=== PATIENT | female | born 1965 | race Asian ===

== ENCOUNTER 2023-07-19 08:07 | Outpatient (CLI) | payer BC ==
[2023-07-19 09:04] LABS: BASOPHILS # (AUTO) 0.1 K/uL (0.0-0.2); BASOPHILS % (AUTO) 1.2 % (0.0-2.0); EOSINOPHILS # (AUTO) 0.2 K/uL (0.0-0.7); EOSINOPHILS % (AUTO) 2.9 % (0.0-6.0); HEMATOCRIT 39 % (33-45); HEMOGLOBIN 12.7 g/dL (11.5-14.8); LYMPHOCYTES # (AUTO) 3.4 K/uL (0.8-4.8); LYMPHOCYTES % (AUTO) 48.3 % (20.0-44.0); MEAN CORPUSCULAR HEMOGLOBIN 32 PG (26.0-33.0); MEAN CORPUSCULAR HGB CONC 33 g/dl (31.0-36.0); MEAN CORPUSCULAR VOLUME 96 fL (82-100); MONOCYTES # (AUTO) 0.3 K/uL (0.1-1.30); NEUTROPHILS # (AUTO) 3.1 K/uL (1.8-8.9); NEUTROPHILS % (AUTO) 43.6 % (43.0-81.0); PLATELET COUNT (AUTO) 312 K/uL (150-450); RED BLOOD CELL COUNT(AUTO) 4.01 MIL/uL (4.0-5.2); RED CELL DISTRIBUTION WIDTH 12.3 % (11.5-15.0)
[2023-07-19 09:08] LABS: APPEARANCE,URINE CLEAR (CLEAR); BILIRUBIN,URINE NEGATIVE (NEGATIVE); BLOOD, URINE 1+ Ery/uL (NEGATIVE); COLOR,URINE YELLOW (YELLOW); KETONES,URINE NEGATIVE (NEGATIVE); LEUKOCYTE ESTERASE ,URINE NEGATIVE (NEGATIVE); NITRITE, URINE NEGATIVE (NEGATIVE); PH,URINE 5.5 (5.0-8.0); PROTEIN,URINE NEGATIVE (NEGATIVE); UGLUCOSE NEGATIVE (NEGATIVE); UROBILINOGEN,URINE 0.2 EU/dL (0.2)
[2023-07-19 09:14] LABS: ADD URINE CULTURE NO; BACTERIA,URINE Rare /HPF (None Seen); SQUAMOUS EPITHELIAL CELL,UR None Seen /HPF (None Seen); WBC,URINE 0-2 /HPF (0-3)
[2023-07-19 09:15] LABS: ERYTHROCYTE SEDIMENTATION RATE 20 MM/HR (0-30)
[2023-07-19 09:18] LABS: ALBUMIN 3.9 g/dL (3.4-5.0); BILIRUBIN,TOTAL 0.3 mg/dL (0.2-1.0); CALCIUM, SERUM 9.4 mg/dL (8.5-10.1); CREATININE 0.8 mg/dL (0.6-1.3); POTASSIUM 3.6 mmol/L (3.5-5.1); TOTAL PROTEIN, SERUM 7.6 g/dL (6.4-8.2)
[2023-07-19 09:35] LABS: THYROID STIMULATING HORMONE 1.084 uIU/mL (0.358-3.74); URIC ACID 6.1 mg/dL (2.6-7.2)
== END 2023-07-19 23:59 | disposition home or self-care (01) ==
LOC: LAB 08:07
PROVIDERS: ATTEND Internal Medicine
DX: Z00.00 Encounter for general adult medical examination without abnormal findings (principal); I10 Essential (primary) hypertension; R79.89 Other specified abnormal findings of blood chemistry; E55.9 Vitamin D deficiency, unspecified; E78.5 Hyperlipidemia, unspecified; N39.0 Urinary tract infection, site not specified; Z79.899 Other long term (current) drug therapy
CPT/HCPCS: 36415; 80053-TC; 80061-TC; 81001; 82306; 82728-TC; 83540-TC; 83735-TC; 84443-TC; 84550-TC; 85025-TC; 85652-TC; 86592; 86593; 86803

== ENCOUNTER 2023-08-12 05:39 | Emergency (ER) | payer BC ==
[~2023-08-12] VITALS: Ht 160 cm; Wt 59.0 kg
[2023-08-12] MEDS: RALTEGRAVIR POTASSIUM 400 MG TABLET PO ONE (06:30)
[2023-08-12] MEDS ORDERED: RALT400T PO (06:32)
[2023-08-12] MEDS ORDERED: EMTR1TAB12 PO (06:32)
[2023-08-12 07:26] LABS: BASOPHILS # (AUTO) 0.1 K/uL (0.0-0.2); BASOPHILS % (AUTO) 0.7 % (0.0-2.0); EOSINOPHILS # (AUTO) 0.1 K/uL (0.0-0.7); EOSINOPHILS % (AUTO) 1.8 % (0.0-6.0); HEMATOCRIT 40 % (33-45); HEMOGLOBIN 13.2 g/dL (11.5-14.8); LYMPHOCYTES % (AUTO) 36.2 % (20.0-44.0); MEAN CORPUSCULAR HEMOGLOBIN 32 PG (26.0-33.0); MEAN CORPUSCULAR HGB CONC 33 g/dl (31.0-36.0); MEAN CORPUSCULAR VOLUME 95 fL (82-100); MONOCYTES # (AUTO) 0.4 K/uL (0.1-1.30); MONOCYTES % (AUTO) 4.7 % (2.0-12.0); NEUTROPHILS # (AUTO) 4.6 K/uL (1.8-8.9); NEUTROPHILS % (AUTO) 56.6 % (43.0-81.0); PLATELET COUNT (AUTO) 302 K/uL (150-450); RED BLOOD CELL COUNT(AUTO) 4.18 MIL/uL (4.0-5.2); RED CELL DISTRIBUTION WIDTH 12.3 % (11.5-15.0); WHITE BLOOD COUNT (AUTO) 8.2 K/uL (4.3-11.0)
[2023-08-12] MEDS: EMTRICITABINE/TENOFOVIR 1 TAB PO SCH (07:38)
[2023-08-12 07:39] VITALS: BP 134/70; TEMP 98.4; O2SAT 99
[2023-08-12 07:42] LABS: ALBUMIN 3.9 g/dL (3.4-5.0); BILIRUBIN,DIRECT 0.1 mg/dL (0.0-0.2); BILIRUBIN,TOTAL 0.4 mg/dL (0.2-1.0); CALCIUM, SERUM 9.4 mg/dL (8.5-10.1); CREATININE 0.7 mg/dL (0.6-1.3); POTASSIUM 3.4 mmol/L (3.5-5.1); TOTAL PROTEIN, SERUM 7.8 g/dL (6.4-8.2)
[2023-08-12 07:54] LABS: INR 0.97 (0.91-1.10); PARTIAL THROMBOPLASTIN TIME 31.2 SEC (24.3-34.3); PROTHROMBIN TIME 10.3 SECS (9.2-11.1)
[2023-08-13 01:16] LABS: HIV-1 p24 ANTIGEN NON REACTIVE (NONREACTIVE); HIV-1/2 ANTIBODY NON REACTIVE (NONREACTIVE)
[2023-08-15 03:11] LABS: HEPATITIS B CORE AB, IgM Negative (Negative); HEPATITIS B CORE AB, TOTAL Positive (Negative); HEPATITIS B SURFACE AB Reactive (.); HEPATITIS Be AG Negative (Negative)
== END 2023-08-12 07:39 | disposition home or self-care (01) ==
LOC: ER 05:42
DX: S61.031A Puncture wound without foreign body of right thumb without damage to nail, initial encounter (principal); Z60.2 Problems related to living alone; W46.1XXA Contact with contaminated hypodermic needle, initial encounter; Y93.89 Activity, other specified; Y92.89 Other specified places as the place of occurrence of the external cause; Y99.0 Civilian activity done for income or pay
CPT/HCPCS: 36415; 80048-TC; 80076-TC; 85025-TC; 85730-TC; 86706; 86707; 86803; 87340; 87806

== ENCOUNTER 2024-07-09 00:18 | Emergency (ER) | payer OTHER ==
[~2024-07-09] VITALS: Ht 160 cm; Wt 59.0 kg
[~2024-07-09 00:18] MED LIST: EMTR1TAB12 PO; RALT400T PO
[2024-07-09 00:29] VITALS: BP 116/78; TEMP 98; O2SAT 99
[2024-07-09] MEDS: IBUPROFEN 600 MG TABLET PO ONE (01:00)
== END 2024-07-09 02:23 | disposition home or self-care (01) ==
LOC: ER 00:23
DX: S09.8XXA Other specified injuries of head, initial encounter (principal); Z79.624 Long term (current) use of inhibitors of nucleotide synthesis; Z60.2 Problems related to living alone; W22.09XA Striking against other stationary object, initial encounter; Y93.89 Activity, other specified; Y92.89 Other specified places as the place of occurrence of the external cause; Y99.8 Other external cause status

== ENCOUNTER 2024-12-19 03:47 | Emergency (ER) | payer OTHER ==
[~2024-12-19] VITALS: Ht 160 cm; Wt 59.0 kg
[2024-12-19 03:52] VITALS: BP 125/82; TEMP 98.4; O2SAT 98
== END 2024-12-19 04:30 | disposition home or self-care (01) ==
LOC: ER 03:48
DX: S00.81XA Abrasion of other part of head, initial encounter (principal); Z79.624 Long term (current) use of inhibitors of nucleotide synthesis; Z60.2 Problems related to living alone; W22.09XA Striking against other stationary object, initial encounter; Y93.89 Activity, other specified; Y92.89 Other specified places as the place of occurrence of the external cause; Y99.8 Other external cause status

== ENCOUNTER 2025-03-17 10:33 | Day surgery (SDC) | payer BC, OTHER ==
[2025-03-17] MEDS ORDERED: ANESTHESIA TRAY IN PYXIS 1 EA TRAY MC ONE (11:06)
[2025-03-17] MEDS ORDERED: FENTANYL PF 100MCG/2ML AMPUL ONE (12:51)
[2025-03-17] MEDS ORDERED: MIDAZOLAM HCL 2 MG/2ML VIAL ONE ×2 (12:52)
== END 2025-03-17 14:57 | disposition home or self-care (01) ==
LOC: DS 10:33
PROVIDERS: ATTEND Internal Medicine Gastroenterology
DX: Z12.11 Encounter for screening for malignant neoplasm of colon (principal); K64.8 Other hemorrhoids; K63.89 Other specified diseases of intestine; Z79.899 Other long term (current) drug therapy; Z98.890 Other specified postprocedural states
CPT/HCPCS: 45378; J3010; J7030; J2250 ×2